=== PATIENT | male | born 1950 | race Caucasian/White ===

== ENCOUNTER 2018-05-23 16:29 | Emergency (ER) | payer MEDICARE, OTHER ==
[2018-05-23] MEDS ORDERED: diphenhydrAMINE 50 MG/ML SDV IM ONE (16:48)
[2018-05-23] MEDS ORDERED: Dexamethasone 4 MG/ML SDV IM ONE (16:49)
--- NOTE | 2018-05-23 16:55 | EDM.PDOC ---
ED HPI GENERAL MEDICAL PROBLEM - General Chief Complaint: Bite:Animal, Insect Stated Complaint: STUNG BY BEE ALLERGIC Time Seen by Provider: 05/23/18 16:50 Source of Information: Reports: Patient History Limitations: Reports: No Limitations - History of Present Illness INITIAL COMMENTS - FREE TEXT/NARRATIVE: Was stung by a bee 30 minutes ago on tip of right 3rd digit. Patient has a bee sting allergy. 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 Has an epi pen but did not use. Denies difficulty breathing or rash. Onset Date: 05/23/18 Onset Time: 16:20 Location: Reports: Upper Extremity, Right - Related Data Allergies Allergy/AdvReac Type Severity Reaction Status Date / Time bee pollen Allergy Anaphylactic Verified 05/23/18 16:42 Shock Penicillins Allergy Anaphylactic Verified 05/23/18 16:42 Shock Home Meds: Home Meds predniSONE [Prednisone] 40 mg PO DAILY 3 Days #6 tablet 05/23/18 [Rx] Past Medical History Cardiovascular History: Reports: Hypertension, Other (See Below) (Arrythmia) - History Comment History Comment: Bee sting allergy Social & Family History - Tobacco Use Smoking Status *Q: Former Smoker Tobacco Use Within Last Twelve Months: No - Alcohol Use Alcohol Use History: Yes Alcohol Use Frequency: Daily ED ROS GENERAL - Review of Systems Review Of Systems: ROS reveals no pertinent complaints other than HPI. ED EXAM, ANIMAL BITE - Physical Exam Exam: See Below Exam Limited By: No Limitations General Appearance: Alert, WD/WN, No Apparent Distress Nose: Normal Inspection Throat/Mouth: Normal Inspection, Normal Lips, Normal Oropharynx, Normal Voice, No Airway Compromise Head: Atraumatic, Normocephalic Neck: Normal Inspection, Full Range of Motion Respiratory/Chest: No Respiratory Distress, Lungs Clear, Normal Breath Sounds Cardiovascular: Regular Rate, Rhythm, No Murmur Extremities: Other (mild swelling to tip of right 3rd digit) Neurological: Alert, Oriented, Normal Cognition, Normal Gait, No Motor/Sensory Deficits Psychiatric: Normal Affect, Normal Mood Skin Exam: Warm/Dry Course - Vital Signs Last Recorded V/S: Last Vital Signs Temp 36.4 C 05/23/18 16:30 Pulse 66 05/23/18 16:30 Resp 18 05/23/18 16:30 BP 137/70 05/23/18 16:30 Pulse Ox 98 05/23/18 16:30 - Orders/Labs/Meds Meds: Medications Discontinued Medications Generic Name Dose Route Start Last Admin Trade Name Gonzalez PRN Reason Stop Dose Admin Dexamethasone 10 mg 05/23/18 16:49 05/23/18 17:43 Dexamethasone IM 05/23/18 16:50 10 mg ONETIME ONE Administration Dexamethasone Confirm 05/23/18 17:37 05/23/18 17:43 Dexamethasone Administered 05/23/18 17:38 Not Given Dose 12 mg .ROUTE .STK-MED ONE Diphenhydramine HCl 50 mg 05/23/18 16:48 05/23/18 17:23 Benadryl IM 05/23/18 16:49 50 mg ONETIME ONE Administration - Re-Assessments/Exams Free Text/Narrative Re-Assessment/Exam: 05/23/18 18:25 Symptoms unchanged Departure - Departure Time of Disposition: 18:25 Disposition: Home, Self-Care 01 Condition: Good Clinical Impression: Bee sting Qualifiers: Encounter type: initial encounter Injury intent: accidental or unintentional Qualified Code(s): T63.441A - Toxic effect of venom of bees, accidental ( unintentional), initial encounter - Discharge Information *PRESCRIPTION DRUG MONITORING PROGRAM REVIEWED*: No *COPY OF PRESCRIPTION DRUG MONITORING REPORT IN PATIENT ROSARIO: Not Applicable Prescriptions: predniSONE [Prednisone] 40 mg PO DAILY 3 Days #6 tablet Referrals: Db Hernandez MD [Primary Care Provider] - Forms: ED Department Discharge Additional Instructions: Fill prescription for Prednisone and take as directed. May also take Benadryl as needed. Return to the ER as needed.
[2018-05-23] MEDS ORDERED: Dexamethasone 4 MG/ML SDV ONE (17:37)
== END 2018-05-23 18:30 | disposition home or self-care (01) ==
LOC: FB.ED 16:29
DX: T63.441A Toxic effect of venom of bees, accidental (unintentional), initial encounter (principal); I10 Essential (primary) hypertension; Z88.0 Allergy status to penicillin; Z91.030 Bee allergy status; Z87.891 Personal history of nicotine dependence
CPT/HCPCS: 96372; 99282; J1100; J1200

== ENCOUNTER 2019-05-21 15:48 | Emergency (ER) | payer MEDICARE, OTHER ==
[2019-05-21] MEDS ORDERED: diphenhydrAMINE 50 MG/ML SDV IVPUSH ONE (16:20)
[2019-05-21] MEDS ORDERED: Famotidine/Normal Saline 20 MG in Premix Bag 1 BAG IV ONE (16:20)
[2019-05-21] MEDS ORDERED: EPINEPHrine 1 MG/ML SDV IM ONE (16:25)
--- NOTE | 2019-05-21 16:55 | EDM.PDOC ---
ED HPI GENERAL MEDICAL PROBLEM - General Chief Complaint: Bite:Animal, Insect Stated Complaint: BEE STING Time Seen by Provider: 05/21/19 16:10 Source of Information: Reports: Patient History Limitations: Reports: No Limitations - History of Present Illness INITIAL COMMENTS - FREE TEXT/NARRATIVE: patient presents following a bee sting X2 on his arm. States he does not have his epipen because it is on back order. Has some rash forming on his arm, and notes that his voice is slightly changed. Has not taken anything. Does not feel like his tongue is swelling, no difficulty swallowing, not lightheaded or dizzy, no difficulty breathing, no nausea. No history of difficulty breathing or throat closing. previous history of bee sting 1 yr ago on his neck, with significant local swelling. Used epi-pen at that time and had no other symptoms. Also had another sting on his upper back, and didn't have his pen at that time, but gave him benadryl and nothing else happened at that time. Otherwise healthy, takes metoprolol, ASA, pill for GERD. Left Arm Pain Score (Numeric/FACES): 4 - Related Data Allergies Allergy/AdvReac Type Severity Reaction Status Date / Time bee pollen Allergy Anaphylactic Verified 05/21/19 16:02 Shock Penicillins Allergy Anaphylactic Verified 05/21/19 16:02 Shock Home Meds: Home Meds predniSONE [Prednisone] 40 mg PO DAILY 3 Days #6 tablet 05/23/18 [Rx] Past Medical History Cardiovascular History: Reports: Hypertension, Other (See Below) Gastrointestinal History: Reports: GERD - Past Surgical History Musculoskeletal Surgical History: Reports: Other (See Below) Other Musculoskeletal Surgeries/Procedures:: xander femur fx, rt tib/fib fx - History Comment History Comment: Bee sting allergy Social & Family History - Family History Family Medical History: Noncontributory - Tobacco Use Smoking Status *Q: Never Smoker Second Hand Smoke Exposure: No - Caffeine Use Caffeine Use: Reports: Coffee Other Caffeine Use: 1 cup daily - Alcohol Use Number of Drinks Per Day: 1 - Recreational Drug Use Recreational Drug Use: No - Living Situation & Occupation Living situation: Reports: Occupation: Retired ED ROS GENERAL - Review of Systems Review Of Systems: ROS reveals no pertinent complaints other than HPI. ED EXAM, ANIMAL BITE - Physical Exam Exam: See Below Text/Narrative:: General: alert, no acute distress. Head atraumatic, neck supple. Throat without erythema, no tongue swelling. Lungs are clear with good air movement throughout. Heart is regular, no murmur heard. Peripheral pulses strong in upper and lower extremities. No lower extremity edema. Abdomen soft, nontender. there are two bee stings present on the left arm, and some wheals forming up his arm. Course - Vital Signs Text/Narrative:: given voice change, will give IM epi. Benadryl and pepcid also ordered. Patient otherwise stable without distress, will closely monitor. Last Recorded V/S: Last Vital Signs Temp 36.5 C 05/21/19 16:03 Pulse 66 05/21/19 16:41 Resp 18 05/21/19 16:03 BP 151/75 H 05/21/19 16:41 Pulse Ox 96 05/21/19 16:03 - Orders/Labs/Meds Meds: Medications Discontinued Medications Generic Name Dose Route Start Last Admin Trade Name Freq PRN Reason Stop Dose Admin Diphenhydramine HCl 50 mg 05/21/19 16:20 05/21/19 16:40 Benadryl IVPUSH 05/21/19 16:21 50 mg ONETIME ONE Administration Epinephrine HCl 0.5 mg 05/21/19 16:25 05/21/19 16:30 Adrenalin IM 05/21/19 16:26 0.5 mg ONETIME ONE Administration Famotidine 20 mg/ Premix 50 mls @ 200 mls/hr 05/21/19 16:20 05/21/19 16:42 IV 05/21/19 16:21 200 mls/hr ONETIME ONE Administration - Re-Assessments/Exams Free Text/Narrative Re-Assessment/Exam: 05/21/19 17:23 greatly improved following treatment, voice clear, no difficulty swallowing or wheezing, rash gone Departure - Departure Time of Disposition: 17:50 Disposition: Home, Self-Care 01 Condition: Good Clinical Impression: Bee sting Qualifiers: Encounter type: initial encounter Injury intent: accidental or unintentional Qualified Code(s): T63.441A - Toxic effect of venom of bees, accidental ( unintentional), initial encounter - Discharge Information *PRESCRIPTION DRUG MONITORING PROGRAM REVIEWED*: Not Applicable *COPY OF PRESCRIPTION DRUG MONITORING REPORT IN PATIENT ROSARIO: Not Applicable Instructions: Anaphylactic Reaction, Adult Referrals: Mary,Db, MD [Primary Care Provider] - Forms: ED Department Discharge Additional Instructions: very careful around bees - if stung again will need to return to ER picker and packer Epi pen RADHA
== END 2019-05-21 17:30 | disposition home or self-care (01) ==
LOC: FB.ED 15:48
DX: T63.441A Toxic effect of venom of bees, accidental (unintentional), initial encounter (principal); I10 Essential (primary) hypertension; Z79.899 Other long term (current) drug therapy; Z88.0 Allergy status to penicillin; Z91.030 Bee allergy status
CPT/HCPCS: 96372; 96374; 96375; 99282; J0171; J1200

== ENCOUNTER 2020-09-26 07:14 | Day surgery (SDC) | payer MEDICARE, OTHER ==
[2020-09-26] MEDS ORDERED: Propofol 200 MG/20 ML SDV IV ONE (07:15)
[2020-09-26] MEDS ORDERED: Midazolam 1 MG/ML 2 ML SDV IV ONE (07:15)
[2020-09-26] MEDS ORDERED: Sodium Chloride 0.9% 10 ML Syringe FLUSH PRN (07:15)
[2020-09-26] MEDS ORDERED: Lactated Ringers 1,000 ML IV SCH (07:15)
--- NOTE | 2020-09-26 09:14 | PCM.OPNOTE ---
- General Post-Op/Procedure Note Date of Surgery/Procedure: 09/26/20 Operative Procedure(s): incomplete c scope Findings: to 40 cm. diverticular disease noted very large diverticula. unable to advance scope safely. Pre Op Diagnosis: L sided abd pain. hx of colon polyps. Post-Op Diagnosis: diverticulosis of colon. normal exam distal to this 40 cm to anus. Anesthesia Technique: MAC Primary Surgeon: Modesto Clifton Anesthesia Provider: Sandee Angel Pathology: none Complications: None Condition: Good Free Text/Narrative:: see dictation
--- NOTE | 2020-09-26 10:40 | OR ---
DATE OF OPERATION: 09/26/2020 SURGEON: Modesto Clifton MD PROCEDURE PERFORMED: Incomplete colonoscopy. PREOPERATIVE DIAGNOSIS: Left-sided abdominal pain. POSTOPERATIVE DIAGNOSIS: He appears to have diverticulosis of the left side of the colon. INDICATIONS FOR PROCEDURE: This is a 69-year-old white male who was referred with a history in the past of a colonic polyp. He has been experiencing left- sided abdominal pain and he was offered and accepted a colonoscopy to work this up. DESCRIPTION OF OPERATION: After an excellent IV sedation was administered, the patient was placed in the left lateral decubitus position. Digital rectal exam was performed. No marked abnormality was noted. The flexible colonoscope was inserted and advanced without difficulty till approximately 40 cm. At this point, he had very large diverticula encountered. Multiple attempts to find the colonic lumen were not successful, and in fact, the scope could not be advanced easily. This situation persisted even with placing the patient on his back. Usually by doing this, we can get the colon full open, but we were unable to identify the lumen. Rather than risk perforation, we elected to terminate the procedure. The colonoscope was slowly withdrawn, and from 40 cm to the anal verge, no marked abnormality was noted. We will be obtaining an air contrast barium enema to examine the rest of his colon. I feel that in all probability his left-sided pain is probably going to be related to his diverticular disease. The barium enema should help us still further delineate this. /[id number] /JONL
== END 2020-09-26 10:18 | disposition home or self-care (01) ==
LOC: FB.SDS 07:14
PROVIDERS: ATTEND Surgery
DX: K57.30 Diverticulosis of large intestine without perforation or abscess without bleeding (principal); I10 Essential (primary) hypertension; E11.9 Type 2 diabetes mellitus without complications; Z86.010 Personal history of colon polyps; Z80.0 Family history of malignant neoplasm of digestive organs; Z79.899 Other long term (current) drug therapy; Z88.0 Allergy status to penicillin; Z91.030 Bee allergy status
CPT/HCPCS: 00812; 45378; J2250; J2704; J7120; 82962